=== PATIENT | male | born 1955 | race Caucasian/White ===

== ENCOUNTER → 2016-11-17 | Day surgery (SDC) | payer OTHER ==
[~2016-11-17] VITALS: Ht 170.2 cm; Wt 86.9 kg
[~2016-11-17] MED LIST: *morphine SULFATE 8 MG/ML PERIprocedure ONLY ONE; CEPH-459 PO; CITA10TA4 PO; DO NOT ADM ANY ANTICOAGULANT DRUGS XX PRN; FAMOTIDINE 20 MG/2 ML VIAL ONE; INSULIN HUMAN REGULAR 1,000 UNITS/10 ML VIAL SQ PRN; LACTATED RINGER'S 1000 ML IV SCH; METOPROLOL TARTRATE 25 MG TAB PO PRN; MIDAZOLAM HCL 2 MG/2 ML VIAL ONE; MULT1TAB78 PO; OMEP20TA PO; ONDANSETRON HCL 4 MG/2 ML VIAL IV PUSH ONE; ONDANSETRON HCL 4 MG/2 ML VIAL IV PUSH PRN; PERC5TAB12 PO; PRAS1CAP3 PO; PRAV20TA2 PO; PROPOFOL 200 MG/20 ML AMP IV ONE; SODIUM CHLORID 0.9% 500 ML IV SCH; VALS1TAB65 PO; VITA500030 CHEW; ceFAZolin 2 GM PREMIX 50 ML IV SCH; ePHEDrine/NS 25 MG/5 ML SYR IV ONE; oxyCODONE/ACETAMINOPHEN 5 MG/325 MG TAB PO PRN
[2016-11-17 09:50] VITALS: BP 119/74; PULSE 58; RESP 20; TEMP 98; O2SAT 100
[2016-11-17 10:43] LABS: AUTOMATED NEUTROPHIL # 3.2 TH/MM3 (1.8-7.7); BASOPHIL % 0.5 % (0.0-2.0); EOSINOPHIL # 0.1 TH/MM3 (0-0.4); EOSINOPHIL % 1.5 % (0.0-4.0); HEMATOCRIT 44.6 % (39.0-51.0); HEMO FLAGS DIFF FINAL; LYMPH % 16.1 % (9.0-44.0); LYMPHOCYTE # 0.7 TH/MM3 (1.0-4.8); MEAN CELL VOLUME 91.1 FL (80.0-100.0); MEAN CORPUSCULAR HGB CONC 35.2 % (32.0-36.0); NEUT % 75.9 % (16.0-70.0); PLATELET COUNT 148 TH/MM3 (150-450); RED BLOOD COUNT 4.89 MIL/MM3 (4.50-5.90); RED CELL DISTRIBUTION WIDTH 13.1 % (11.6-17.2); WHITE BLOOD COUNT 4.3 TH/MM3 (4.0-11.0)
--- NOTE | 2016-11-17 10:49 | EKG ---
Date Performed: 11/17/2016 Time Performed: 10:12:14 PTAGE: 60 years EKG: SINUS BRADYCARDIA BORDERLINE LEFT AXIS DEVIATION BORDERLINE ECG PREVIOUS TRACING : 03/28/2015 11.11 No change from previous tracing noted. DOCTOR: Tong Culver Interpretating Date/Time 11/17/2016 10:47:41
[2016-11-17 16:45] VITALS: BP 116/74; PULSE 59; RESP 16; TEMP 97.6; O2SAT 98
--- NOTE | 2016-11-20 22:35 | MP ---
cc: CRISTIANA MCCORD MD DATE OF SURGERY INDICATIONS FOR PROCEDURE Case of a pleasant 60-year-old gentleman with urethral stricture formation who presents today to undergo cystoscopy and direct visual internal urethrotomy. PREOPERATIVE DIAGNOSIS Urethral stricture. POSTOPERATIVE DIAGNOSIS Urethral stricture. ATTENDING SURGEON Dr. Neli Mccord ANESTHESIA General. PROCEDURES PERFORMED Cystoscopy and direct visual internal urethrotomy. COMPLICATIONS None. BLOOD LOSS None SPECIMENS None. PROCEDURE IN DETAIL The patient was brought to the operating room suite and placed supine on the cystoscopy table. He was then placed under general anesthesia. He was then repositioned in the dorsal lithotomy position and prepped and draped in normal sterile fashion. After an appropriate time-out was undertaken, I proceeded with rigid cystoscopy utilizing the rigid cystoscope with the 20-Jamaican sheath and 30 degree lens. The patient was noted to have a circumferential bulbar urethral stricture that precluded passage of the cystoscope. The cystoscope was next exchanged for the direct visual internal urethrotome and the patient underwent a direct visual internal urethrotomy by utilizing the straight blade and cutting at the 12 o'clock position. The stricture opened up nicely. I was then able to exchange the internal urethrotome back to the cystoscope and complete cystoscopic evaluation. The remainder of the bulbar urethra was patent. The external urinary sphincter was identified and appeared to be intact. The prostate was non obstructing. Further pass of the cystoscope within the urinary bladder revealed marked trabeculation diffusely. Both right and left ureteral orifices in the correct anatomic position effluxing clear yellow urine. There were no bladder mucosal lesions, calculi or diverticula noted. Next, the cystoscope was withdrawn and an 18-Jamaican 10 mL Mcarthur catheter was placed and connected to gravity drainage. The patient tolerated the procedures without complications and was transferred to the PACU in satisfactory condition. MD SUSY Taylor/ /1:42 PM /10:28 PM
== END | disposition home or self-care (01) ==
LOC: HSDC 09:39
PROVIDERS: ATTEND Urology
DX: N35.9 Urethral stricture, unspecified (principal); I10 Essential (primary) hypertension; R94.31 Abnormal electrocardiogram [ECG] [EKG]
CPT/HCPCS: 00910; 52276; 85025; 93005; J0690; J2250; J2270; J2405; J3010; J7120

== ENCOUNTER → 2017-03-05 | Outpatient (CLI) | payer OTHER ==
[~2017-03-05] MED LIST changes: -*morphine SULFATE 8 MG/ML PERIprocedure ONLY ONE; -CEPH-459 PO; -DO NOT ADM ANY ANTICOAGULANT DRUGS XX PRN; -FAMOTIDINE 20 MG/2 ML VIAL ONE; -INSULIN HUMAN REGULAR 1,000 UNITS/10 ML VIAL SQ PRN; -LACTATED RINGER'S 1000 ML IV SCH; -METOPROLOL TARTRATE 25 MG TAB PO PRN; -MIDAZOLAM HCL 2 MG/2 ML VIAL ONE; -ONDANSETRON HCL 4 MG/2 ML VIAL IV PUSH ONE; -ONDANSETRON HCL 4 MG/2 ML VIAL IV PUSH PRN; -PERC5TAB12 PO; -PROPOFOL 200 MG/20 ML AMP IV ONE; -SODIUM CHLORID 0.9% 500 ML IV SCH; -ceFAZolin 2 GM PREMIX 50 ML IV SCH; -ePHEDrine/NS 25 MG/5 ML SYR IV ONE; -oxyCODONE/ACETAMINOPHEN 5 MG/325 MG TAB PO PRN
[2017-03-05 09:55] LABS: ALKALINE PHOSPHATASE 85 U/L (45-117); ALT (GPT) 26 U/L (12-78); ANION GAP 8 MEQ/L (5-15); AST (GOT) 18 U/L (15-37); BLOOD UREA NITROGEN 24 MG/DL (7-18); CHLORIDE 105 MEQ/L (98-107); GLOMERULAR FILTRATION RATE 79 ML/MIN (>89); GLUCOSE,FASTING 86 MG/DL (74-99); HDL CHOLESTEROL 50.5 MG/DL (40.0-60.0); LDL CHOLESTEROL 79 MG/DL (0-99); POTASSIUM 3.9 MEQ/L (3.5-5.1); SODIUM (NA) 141 MEQ/L (136-145); TOTAL BILIRUBIN ADULT 0.6 MG/DL (0.2-1.0)
== END ==
LOC: PLAB 07:23
PROVIDERS: ATTEND Family Medicine
DX: I10 Essential (primary) hypertension (principal); E78.2 Mixed hyperlipidemia
CPT/HCPCS: 36415; 80053; 80061

== ENCOUNTER → 2017-09-18 | Outpatient (CLI) | payer OTHER ==
[~2017-09-18] MED LIST changes: -OMEP20TA PO; +OMEP20TA93 PO
[2017-09-18 14:14] LABS: ANION GAP 4 MEQ/L (5-15); AST (GOT) 23 U/L (15-37); BICARBONATE 30.9 MEQ/L (21.0-32.0); BLOOD UREA NITROGEN 19 MG/DL (7-18); CHLORIDE 107 MEQ/L (98-107); GLOMERULAR FILTRATION RATE 65 ML/MIN (>89); SODIUM (NA) 142 MEQ/L (136-145)
[2017-09-18 14:25] LABS: ALKALINE PHOSPHATASE 74 U/L (45-117); ALT (GPT) 24 U/L (12-78); GLUCOSE,FASTING 96 MG/DL (74-99); HDL CHOLESTEROL 50.2 MG/DL (40.0-60.0); LDL CHOLESTEROL 65 MG/DL (0-99); TOTAL BILIRUBIN ADULT 0.5 MG/DL (0.2-1.0)
[2017-09-18 15:01] LABS: HEMOGLOBIN A1a 1.1 %; HEMOGLOBIN A1b 1.7 %; HEMOGLOBIN Ao 85.8 %; HEMOGLOBIN LA1C 1.9 %; HEMOGLOBIN P3 3.7 %
== END ==
LOC: PLAB 07:46
PROVIDERS: ATTEND Family Medicine
DX: E78.2 Mixed hyperlipidemia (principal); I10 Essential (primary) hypertension; R73.01 Impaired fasting glucose; G47.00 Insomnia, unspecified
CPT/HCPCS: 36415; 80053; 80061; 83036

== ENCOUNTER → 2017-11-05 | Outpatient (CLI) | payer OTHER | LOC: CLAB 09:20 | PROVIDERS: ATTEND Urology | DX: N40.1 Benign prostatic hyperplasia with lower urinary tract symptoms (principal) | CPT/HCPCS: 36415; 84153 ==